=== PATIENT | female | born 1990 | race Caucasian/White ===

== ENCOUNTER 2017-11-25 13:17 | Outpatient (CLI) | END 2017-11-25 13:18 | disposition home or self-care (01) | LOC: LAB 13:17 | PROVIDERS: ATTEND Nurse Practitioner Family | DX: J02.9 Acute pharyngitis, unspecified (principal) | CPT/HCPCS: 87651 ==

== ENCOUNTER 2018-01-08 15:08 | Outpatient (CLI) | END 2018-01-08 15:09 | disposition home or self-care (01) | LOC: CAR 15:08 | PROVIDERS: ATTEND Nurse Practitioner Family | DX: R00.0 Tachycardia, unspecified (principal); R11.0 Nausea | CPT/HCPCS: 36415; 80053; 81025; 84439; 84443; 85025; 93005; 93010 ==

== ENCOUNTER 2019-01-09 08:54 | Outpatient (CLI) ==
--- NOTE | 2019-01-09 10:24 | US ---
Exam: Right upper quadrant abdominal ultrasound HISTORY: Epigastric pain. Procedures: Transverse and longitudinal real time lopez scale echograms and color Doppler images of t he right upper abdominal quadrant were obtained. FINDINGS: The pancreatic head and body appear within normal limits, the tail is obscured by bowel ga s. The liver demonstrates normal echo texture with no intrahepatic mass or ductal dilatation. Forwa rd flow is noted in the portal vein. The gallbladder demonstrates no echogenic gallstones, gallbladde r wall thickening or pericholecystic fluid. The common bile duct is not dilated. The right kidney i s 9.5 cm in length, without hydronephrosis. There is no free fluid in the right upper abdominal quad rant. IMPRESSION: No evidence of cholelithiasis or biliary ductal dilatation. No acute process in the rig ht upper abdominal quadrant.
== END 2019-01-09 08:55 | disposition home or self-care (01) ==
LOC: RAD 08:54
PROVIDERS: ATTEND Family Medicine
DX: R10.13 Epigastric pain (principal)

== ENCOUNTER 2019-01-13 07:58 | Outpatient (CLI) ==
--- NOTE | 2019-01-13 11:11 | NM ---
EXAM: Hepatobiliary scan HISTORY: Stomach cramping. Nausea, vomiting and diarrhea. COMPARISON: None of this type. PROCEDURE: The patient was injected with 5.23 mCi of 99mTc mebrofenin intravenously. Images of the a bdomen were obtained at 5 min intervals for 30 minutes. Additional images were obtained at 45 minut es and 1 hour. The patient was then given 8 ounces of Boost plus after which images of the gallbladde r were obtained to assess gallbladder contraction. FINDINGS: Sequential images demonstrate normal uptake of tracer into the liver. Activity is seen in the intrahepatic biliary ducts at about 15 minutes. The activity appears in the gallbladder at about 45 minutes. Subsequent images demonstrate increasing activity in the gallbladder. Activity first a ppears in the small bowel at 20 minutes. The gallbladder ejection fraction is 25% . IMPRESSION: 1.Normal hepatobiliary scan. 2.The gallbladder ejection fraction is 25% (low).
== END 2019-01-13 07:59 | disposition home or self-care (01) ==
LOC: RAD 07:58
PROVIDERS: ATTEND Family Medicine
DX: R10.13 Epigastric pain (principal)

== ENCOUNTER 2019-04-08 10:20 | Outpatient (CLI) ==
--- NOTE | 2019-04-08 11:17 | DI ---
EXAM: Left tibia and fibula AP and lateral views. HISTORY: Leg nodule FINDINGS / IMPRESSION: The region of interest was not provided. Bone and joint structures appear n ormal. There is a 3 x 1 mm calcification within the subcutaneous fat of the lateral upper calf which is likely vascular in nature. Soft tissues were otherwise unremarkable radiographically.
--- NOTE | 2019-04-08 11:23 | US ---
EXAM: Ultrasound venous Doppler left lower extermity HISTORY: Leg nodule COMPARISON: None TECHNIQUE: Venous duplex ultrasound of the left lower extremity was performed using color, lopez-scal e, and Doppler flow imaging. FINDINGS: There is normal color flow and compression of the left common femoral, greater saphenous, profunda femoral, femoral, popliteal, peroneal, posterior tibial, and anterior tibial veins without e vidence of intraluminal thrombus. No reflux is identified. IMPRESSION: No left lower extremity deep venous thrombosis.
--- NOTE | 2019-04-08 11:34 | US ---
EXAM: Ultrasound extremity left lower HISTORY: Left leg mass COMPARISON: None FINDINGS: Ultrasound extremity left lower was performed in the region of clinical concern, anterior inferior to the knee. Subcutaneous edema seen in the region of clinical concern. No mass or fluid c ollection identified. IMPRESSION: Subcutaneous edema in the region of clinical concern. No mass or fluid collection ident ified.
== END 2019-04-08 10:21 | disposition home or self-care (01) ==
LOC: RAD 10:20
PROVIDERS: ATTEND Family Medicine
DX: R22.42 Localized swelling, mass and lump, left lower limb (principal)
CPT/HCPCS: 76882